=== PATIENT | male | born 1995 | race Two or more races ===

== ENCOUNTER 2020-09-25 08:16 | Emergency (ER) | payer OTHER ==
[~2020-09-25] VITALS: Ht 185.4 cm; Wt 72.1 kg
[2020-09-25] MEDS ORDERED: DICLOFENAC POTA50 MG PO (09:36)
== END 2020-09-25 09:45 ==
LOC: ER 08:16
DX: T14.90XA Injury, unspecified, initial encounter (principal); Y93.66 Activity, soccer; Y92.89 Other specified places as the place of occurrence of the external cause

== ENCOUNTER 2020-10-23 08:14 | Outpatient (CLI) | payer OTHER ==
[~2020-10-23 08:14] MED LIST: DICLOFENAC POTA50 MG PO
== END 2020-10-23 08:27 | disposition home or self-care (01) ==
LOC: RAD 08:14
PROVIDERS: ATTEND Orthopaedic Surgery
DX: S62.332A Displaced fracture of neck of third metacarpal bone, right hand, initial encounter for closed fracture (principal)

== ENCOUNTER 2022-12-30 13:48 | Emergency (ER) | payer OTHER ==
[~2022-12-30] VITALS: Ht 185.4 cm; Wt 72.6 kg
[2022-12-30 17:12] LABS: HEMATOCRIT 42.6 % (39.0-48.0); MEAN CELL VOLUME 89.9 fL (80.0-100.00); MEAN CORPUSCULAR HEMOGLOBIN 31.6 pg (27.00-32.0); MEAN CORPUSCULAR HGB CONC 35.2 g/dl (32.0-36.0); PLATELET COUNT 179 K/uL (150-450); RED BLOOD COUNT 4.74 M/uL (4.00-6.00); RED CELL DISTRIBUTION WIDTH 13.1 % (11.5-14.5)
[2022-12-30 17:28] LABS: CALCIUM 9.6 mg/dL (8.5-10.1); CREATININE SERUM 0.93 mg/dL (0.70-1.30); GFR 97.46; POTASSIUM 4.79 mEq/L (3.5-5.1)
== END 2022-12-30 19:08 | disposition home or self-care (01) ==
LOC: ER 13:48
PROVIDERS: General Practice
DX: M94.0 Chondrocostal junction syndrome [Tietze] (principal)